=== PATIENT | female | born 1980 | race Caucasian/White ===

== ENCOUNTER 2017-03-27 15:33 | Emergency (ER) | payer MEDICAID ==
[~2017-03-27] VITALS: Ht 162.6 cm; Wt 79.4 kg
[~2017-03-27 15:33] MED LIST: ACETAMINOPHEN-H1 TA2 PO; BUPRENORPHINE H1 TAB PO; BUPROPION HCL150 MG PO; BUSPIRONE HCL10 M1; CITALOPRAM HYDR40 MG PO; CLINDAMYCIN HC300 MG PO; CLONAZEPAM2 MG PO; ETODOLAC400 MG PO; FLEXERIL10 M1 PO; FLEXERIL10 MG PO; HYDROXYZINE HYD50 M1 PO; KLONOPIN 0.5MG0.5 MG PO; LAMICTAL XR300 MG PO; LAMICTAL200 MG PO; LEVAQUIN750 MG PO; MACROBID100 M3 PO; MEDROL DOSEPAK4 MG PO; ROBAXIN-750750 MG PO; SUBOXONE 8 MG-2 MG S; TORADOL10 M1 PO; TORADOL10 MG PO; VALTREX1 GM PO; ZANTAC 150150 MG PO
--- NOTE | 2017-03-27 15:39 | Emergency Room Report ---
History of Present Illness Time Seen by [id number] Presenting Problem in Triage Pt arrived:Walked Presenting Problem:SM LAC TO R INDEX FINGER , NO BLEEDING . 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 N Clinical Suspician of Infection? N Mental Status: 1 - Regular (Normal Baseline) Sepsis Risk:Possible Sepsis Risk Have you (or family members/close friends) recently traveled outside the [place]? N If Yes, where/when: Have you had exposure to infectious disease within the past month? N TB? Other? Specify: Source patient, RN notes reviewed Exam Limitations no limitations Comment accidentally cut her right index finger by closing a pocket knife on it. Cardiac Chest Pain Chest pain indicative of cardiac No ALLERGIES Coded Allergies: Penicillins (Severe, A-ILLKAN-TPBX/THROAT 01/13/16) cefaclor (From CECLOR) (Severe, Y-RAUNGE-ICPG/THROAT 01/13/16) amoxicillin (Mild, 01/13/16) azithromycin (From ZITHROMAX) (Mild, 01/13/16) Home Medications Active Scripts HYDROCODONE/ACETAMINOPHEN (Hydrocodon-Acetaminophen 5-325) 1 TAB PO TID #15 TAB Prov: 01/15/16 Clindamycin Hcl (Clindamycin 300MG) 300 MG PO TID #30 CAP Prov: 12/06/16 Methylprednisolone (Medrol) 4 MG PO DAILY #1 TAB Prov: 01/18/16 Reported Medications Bupropion Hcl (Bupropion HCl Sr) 150 MG PO BID 30 Days Citalopram Hydrobromide (Citalopram HBr) 40 MG PO DAILY 30 Days Clonazepam (Klonopin 0.5MG) 0.5 MG PO 0800,1200 Lamotrigine (Lamictal) 200 MG PO BID History Medical History General CAD? No Angina: No HI: Yes Hypertension? No Hyperlipidemia? No CHF? No DVT? No PE? No COPD? No Asthma? No Anemia? No GERD? No Gastric ulcers? No GI Bleed? No Hernia? No Thyroid Problems? No Hypothyroidism? No CVA? No Seizures? No Diabetes? No Renal Insuffiency? No End Stage Renal Disease? No UTI? Yes Stones? No GB Disease: No Nephritic Syndrome? No Asplenia? No Hepatitis? No Sickle Cell Disease? No Arthritis? No Migraines? No Cataracts? No Glaucoma? No MRSA? No HIV? No TB? No Anxiety? Yes Depression? Yes Cancer? No More? Yes Additional hx: GENITAL HERPES Bipolar Panic disorder Anxiety Depression Chronic pain Urinary incontinence Chronic rheumatic fever Immunization Hx DT/Tetanus Has Never Had Pneumonia Refuses Surgical Hx Previous Surgery?Y X 2 TUBAL LIGATION GALLBLADDER Family History Family Hx Diabetes Yes CAD Yes Hypertension Yes Hyperlipidemia Yes Cancer No TB No Social History Smoking Hx Packs/day 1 1/2 - 2 Packs Alcohol Alcohol: No Review of Systems All Other Systems Reviewed and Negative Constitutional see HPI Skin see HPI Physical Exam Vital Signs Vital Signs Date Time Temp Pulse Resp B/P Pulse O2 O2 Flow FiO2 Ox Delivery Rate 03/27 1538 98.1 92 20 119/53 99 General Appearance normal appearance, WD/WN, no apparent distress Respiratory Status No: respiratory distress. 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 No Results/Orders Current Medication Orders Sig/Flavia Start time Last Medication Dose Route Stop Time Status Admin Bacitracin 0 .STK-MED ONE 03/27 1623 DC TP Lidocaine HCl 0 .STK-MED ONE 03/27 1605 DC .ROUTE Procedures Laceration/Wound Repair Laceration/Wound Repair Risks/benefits discussed with pt/guardian? Yes Tetanus status up to date Wound Location finger(s) Wound Length (cm) 1 Wound's Depth, Shape sucutaneous tissue Wound Explored clean Risk of retained FB explained to pt/guardian? No Irrigated w/ Saline (ccs) 25 Wound Prep Hibiclens, Saline Anesthesia 1% Lidocaine Volume Anesthetic (ccs) 1 Wound Debrided none Wound Repaired With sutures Suture Size/Type 5:0, Ethilon Layer Closure No Total Number Sutures 5 Sterile Dressing Applied Yes Splint Applied No Departure Departure Time of Disposition 1622 Disposition DC Home or Self Care(routine) Clinical Impression Primary Impression: Laceration of right index finger w/o foreign body w/o damage to nail Qualifiers: Encounter type: initial encounter Qualified Code: S61.210A - Laceration without foreign body of right index finger without damage to nail, initial encounter Condition STABLE Referrals KHAI DINHHEAVENLY (Family): 2 Days-Call Office Patient Instructions DI for Laceration Repair, Laceration Repair Additional Instructions Keep stitches dry for 2 days. Change dressing daily and reapply Bactroban ointment Discharge Counseling Counseled pt/family regarding diagnosis, medications/RX, follow up needs Prescriptions Current Visit Scripts SULFAMETHOXAZOLE W/TRIMETHOPRI (Bactrim Ds Tab) 1 TABLET PO BID #20 TAB MUPIROCIN 2% (Bactroban Oint) 1 GM TP DAILY #1 TUBE ED Critical Care Critical Care No If Critical Care minutes are documented, the time involved in the performance of seperately reportable procedures was not counted toward critical care time documented. I directly delivered medical care to this critically ill and/or injured patient. Timely evaluation and treatment was necessary to address the significant organ system(s) dysfunction present in this patient. at [id number]
--- NOTE | 2017-03-27 15:39 | Emergency Room Report ---
History of Present Illness Time Seen by [id number] Presenting Problem in Triage Pt arrived:Walked Presenting Problem:SM LAC TO R INDEX FINGER , NO BLEEDING . 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 N Clinical Suspician of Infection? N Mental Status: 1 - Regular (Normal Baseline) Sepsis Risk:Possible Sepsis Risk Have you (or family members/close friends) recently traveled outside the [place]? N If Yes, where/when: Have you had exposure to infectious disease within the past month? N TB? Other? Specify: Source patient, RN notes reviewed Exam Limitations no limitations Comment accidentally cut her right index finger by closing a pocket knife on it. Cardiac Chest Pain Chest pain indicative of cardiac No ALLERGIES Coded Allergies: Penicillins (Severe, K-[id number]-RROH/THROAT 01/13/16) cefaclor (From CECLOR) (Severe, N-FQBFKC-QRBU/THROAT 01/13/16) amoxicillin (Mild, 01/13/16) azithromycin (From ZITHROMAX) (Mild, 01/13/16) Home Medications Active Scripts HYDROCODONE/ACETAMINOPHEN (Hydrocodon-Acetaminophen 5-325) 1 TAB PO TID #15 TAB Prov: 01/15/16 Clindamycin Hcl (Clindamycin 300MG) 300 MG PO TID #30 CAP Prov: 12/06/16 Methylprednisolone (Medrol) 4 MG PO DAILY #1 TAB Prov: 01/18/16 Reported Medications Bupropion Hcl (Bupropion HCl Sr) 150 MG PO BID 30 Days Citalopram Hydrobromide (Citalopram HBr) 40 MG PO DAILY 30 Days Clonazepam (Klonopin 0.5MG) 0.5 MG PO 0800,1200 Lamotrigine (Lamictal) 200 MG PO BID History Medical History General CAD? No Angina: No MT: Yes Hypertension? No Hyperlipidemia? No CHF? No DVT? No PE? No COPD? No Asthma? No Anemia? No GERD? No Gastric ulcers? No GI Bleed? No Hernia? No Thyroid Problems? No Hypothyroidism? No CVA? No Seizures? No Diabetes? No Renal Insuffiency? No End Stage Renal Disease? No UTI? Yes Stones? No GB Disease: No Nephritic Syndrome? No Asplenia? No Hepatitis? No Sickle Cell Disease? No Arthritis? No Migraines? No Cataracts? No Glaucoma? No MRSA? No HIV? No TB? No Anxiety? Yes Depression? Yes Cancer? No More? Yes Additional hx: GENITAL HERPES Bipolar Panic disorder Anxiety Depression Chronic pain Urinary incontinence Chronic rheumatic fever Immunization Hx DT/Tetanus Has Never Had Pneumonia Refuses Surgical Hx Previous Surgery?Y X 2 TUBAL LIGATION GALLBLADDER Family History Family Hx Diabetes Yes CAD Yes Hypertension Yes Hyperlipidemia Yes Cancer No TB No Social History Smoking Hx Packs/day 1 1/2 - 2 Packs Alcohol Alcohol: No Review of Systems All Other Systems Reviewed and Negative Constitutional see HPI Skin see HPI Physical Exam Vital Signs Vital Signs Date Time Temp Pulse Resp B/P Pulse O2 O2 Flow FiO2 Ox Delivery Rate 03/27 1538 98.1 92 20 119/53 99 General Appearance normal appearance, WD/WN, no apparent distress Respiratory Status No: respiratory distress. 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 No Results/Orders Current Medication Orders Sig/Flavia Start time Last Medication Dose Route Stop Time Status Admin Bacitracin 0 .STK-MED ONE 03/27 1623 DC TP Lidocaine HCl 0 .STK-MED ONE 03/27 1605 DC .ROUTE Procedures Laceration/Wound Repair Laceration/Wound Repair Risks/benefits discussed with pt/guardian? Yes Tetanus status up to date Wound Location finger(s) Wound Length (cm) 1 Wound's Depth, Shape sucutaneous tissue Wound Explored clean Risk of retained FB explained to pt/guardian? No Irrigated w/ Saline (ccs) 25 Wound Prep Hibiclens, Saline Anesthesia 1% Lidocaine Volume Anesthetic (ccs) 1 Wound Debrided none Wound Repaired With sutures Suture Size/Type 5:0, Ethilon Layer Closure No Total Number Sutures 5 Sterile Dressing Applied Yes Splint Applied No Departure Departure Time of Disposition 1622 Disposition DC Home or Self Care(routine) Clinical Impression Primary Impression: Laceration of right index finger w/o foreign body w/o damage to nail Qualifiers: Encounter type: initial encounter Qualified Code: S61.210A - Laceration without foreign body of right index finger without damage to nail, initial encounter Condition STABLE Referrals KHAI DINHHEAVENLY (Family): 2 Days-Call Office Patient Instructions DI for Laceration Repair, Laceration Repair Additional Instructions Keep stitches dry for 2 days. Change dressing daily and reapply Bactroban ointment Discharge Counseling Counseled pt/family regarding diagnosis, medications/RX, follow up needs Prescriptions Current Visit Scripts SULFAMETHOXAZOLE W/TRIMETHOPRI (Bactrim Ds Tab) 1 TABLET PO BID #20 TAB MUPIROCIN 2% (Bactroban Oint) 1 GM TP DAILY #1 TUBE ED Critical Care Critical Care No If Critical Care minutes are documented, the time involved in the performance of seperately reportable procedures was not counted toward critical care time documented. I directly delivered medical care to this critically ill and/or injured patient. Timely evaluation and treatment was necessary to address the significant organ system(s) dysfunction present in this patient. at [id number]
--- OUTSIDE RECORDS SUMMARY | 2017-03-27 16:02 | External Medical Summary Rpt | CCD ---
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 Name Role Phone ANDRE ANDINO MD, Unavailable Unavailable ANDRE ANDINO MD Purpose Continuity of Care Document - 02-05-2013 through 2016 Problems Code Diagnosis DOS Provider Status E06.0 ACUTE 02-02-2017 THYROIDITIS 805.4 805.4 FX 02-05-2013 [facility] OSE E849.8 E849.8 02-05-2013 Ming ACCIDENT IN [facility] E884.2 E884.2 FALL 02-05-2013 Ming FROM [facility] A60.00 HERPESVIRAL INFECTION OF UROGENITAL SYSTEM, UNSPECIFIED F32.9 MAJOR DEPRESSIVE DISORDER, SINGLE EPISODE, UNSPECIFIED F41.0 PANIC DISORDER WITHOUT AGORAPHOBIA F41.1 GENERALIZED ANXIETY DISORDER F43.10 POST-TRAUMA TIC STRESS DISORDER, UNSPECIFIED K81.0 ACUTE CHOLECYSTIT IS M27.3 ALVEOLITIS OF JAWS R11.0 NAUSEA R20.9 UNSPECIFIED DISTURBANCE S OF SKIN SENSATION S00.83XA CONTUSION OF OTHER PART OF HEAD, INITIAL ENCOUNTER S06.0X9A CONCUSSION W LOSS OF CONSCIOUSNE SS OF UNSP DURATION, INIT S16.1XXA STRAIN OF MUSCLE, FASCIA AND TENDON AT NECK LEVEL, INIT S30.0XXA CONTUSION OF LOWER BACK AND PELVIS, INITIAL ENCOUNTER S43.409A UNSP SPRAIN OF UNSPECIFIED SHOULDER JOINT, INIT ENCNTR S73.109A UNSPECIFIED SPRAIN OF UNSPECIFIED HIP, INITIAL ENCOUNTER T14.8 OTHER INJURY OF UNSPECIFIED BODY REGION T78.40XA ALLERGY, UNSPECIFIED , INITIAL ENCOUNTER Allergies, Adverse Reactions, Alerts Type Drug Allergy Adverse Reaction to Substance Substance Reaction Severity Cephalosporin Unknown Unknown Penicillin Unknown Unknown Penicillin V Unknown Unknown Cefaclor Unknown Unknown Medications Na ND Rx Da Fi Fi Am Da Di Ph RX Ph St me C No te ll ll ou ys ag ar # ys at rm s nt no ma ic us Or Da si cy ia de te s n re d Ib 62 10 0 No up 58 -0 ro 40 8- Lo fe 74 20 ng n 60 13 er 40 1 0M Ac G ti Ta ve bl et Vital Signs 02-05-2013 18:13 Name Value Interpretat Reference Comment ion Range BP 55 mm[Hg] Diastolic BP Systolic 108 mm[Hg] Heart 72 /min Rate/Pulse O2% 98 % Respiratory 18 /min Rate 02-05-2013 16:41 Name Value Interpretat Reference Comment ion Range BP 103 mm[Hg] Diastolic BP Systolic 156 mm[Hg] Heart 89 /min Rate/Pulse O2% 98 % Respiratory 20 /min Rate Encounters Encounter Start End Date Code Location Performer Type Date Emergency MELISSA ANDINO MD (ER) 3 16:02 3 18:14 [facility]
--- OUTSIDE RECORDS SUMMARY | 2017-03-27 16:02 | External Medical Summary Rpt | CCD ---
Author Author , BRIAN Organization BRIAN Address Unknown Phone [email or web address] Immunization Name Date Rout CVX Reac Dose Comm Prov Is Faci e tion ent ider Refu lity Give sed n Tdap 04-2 115 999 Hist H149 No H149 , 9-20 oric Adso 08 al rbed Info rmat ion - Sour ce Unsp ecif ied
--- OUTSIDE RECORDS SUMMARY | 2017-03-27 16:02 | External Medical Summary Rpt ---
Author Author [employer], [employer] Organization [employer] Address Unknown Phone Unavailable Results CBC W Auto Differential panel in Blood Observa Value Referen Units Interpr Notes Date tion ce etation Range Basophils 0 - 0.2 K/MM3 Normal No Dec 06 inform2016 [#/volume on in 10:25 PM ] in source Blood by data Automated count Basophils 0.1 - 2.0 % Normal No Dec 06 /2016 leukocyte on in 10:25 PM s in source Blood by data Automated count Eosinophi 0.0 - 0.4 K/mm3 Normal No Dec 06 ls 2016 [#/volume on in 10:25 PM ] in source Blood by data Automated count Eosinophi 0.1 - % Normal No Dec 06 ls/100 12.0 inform2016 leukocyte on in 10:25 PM s in source Blood by data Automated count Granulocy 1.8 - 7.8 K/mm3 Normal No Dec 06 herson 2016 [#/volume on in 10:25 PM ] in source Blood by data Automated count Granulocy 37.0 - % Normal No Dec 06 herson/100 80.0 2016 leukocyte on in 10:25 PM s in source Blood by data Automated count Hematocri 37.0 - % Normal No Dec 06 t [Volume 47.0 2016 on in 10:25 PM Fraction] source of Blood data Hemoglobi 12.2 - g/dL No No Dec 06 n 16.2 informati 2016 [Mass/vol on in on in 10:25 PM ume] in source source Blood data data Lymphocyt 0.7 - 4.5 K/mm3 Normal No Dec 06 es inform2016 [#/volume on in 10:25 PM ] in source Unspecifi data ed specimen by Automated count Lymphocyt 10 - 50.0 % Normal No Dec 06 es inform2016 [#/volume on in 10:25 PM ] in source Unspecifi data ed specimen by Automated count Erythrocy 27 - 31.2 pg Normal No Dec 06 te mean 2016 corpuscul on in 10:25 PM ar source hemoglobi data n [Entitic mass] Erythrocy 31.8 - g/dl Normal No Dec 06 te mean 35.4 2016 corpuscul on in 10:25 PM ar source hemoglobi data n concentra tion [Mass/vol ume] by Automated count Erythrocy 82.2 - fl Normal No Dec 06 te mean 97.8 2016 corpuscul on in 10:25 PM ar volume source [Entitic data volume] by Automated count Monocytes 0.1 - 1.0 K/mm3 Normal No Dec 062016 [#/volume on in 10:25 PM ] in source Blood by data Automated count Monocytes 1.7 - 9.3 % Normal No Dec 06 /100 2016 leukocyte on in 10:25 PM s in source Blood by data Automated count Platelet 7.4 - fl Low No Dec 06 mean 10.4 2016 volume on in 10:25 PM [Entitic source volume] data in Blood by Automated count Platelets 142 - 424 K/mm3 Normal No Dec 062016 [#/volume on in 10:25 PM ] in source Blood data Erythrocy 4.2 - 5.4 M/mm3 Normal No Dec 06 herson 2016 [#/volume on in 10:25 PM ] in source Amniotic data fluid Erythrocy 11.5 - % Normal No Dec 06 te 17.5 2016 distribut on in 10:25 PM ion width source [Entitic data volume] by Automated count Leukocyte 4.8 - K/MM3 High No Dec 06 s 10.8 2016 [#/volume on in 10:25 PM ] in source Blood data Erythrocyte sedimentation rate by Westergren method Observa Value Referen Units Interpr Notes Date tion ce etation Range Erythrocy 0 - 20 mm/hr Normal No Dec 06 te 2016 sedimenta on in 10:25 PM tion rate source by data Westergre n method Comprehensive metabolic 2000 panel in Serum or Plasma Observa Value Referen Units Interpr Notes Date tion ce etation Range Albumin/G 1.1 - 1.8 No Normal No Dec 06 lobulin informati 2016 [Mass on in on in 10:25 PM ratio] in source source Serum or data data Plasma Albumin 3.4 - 5.0 gm/dL Normal No Dec 06 [Mass/vol informati 2017 ume] in on in 10:25 PM Serum or source Plasma data Alkaline 46 - 116 U/L Normal No Dec 06 phosphata informati 2016 se on in 10:25 PM [Enzymati source c data activity/ volume] in Serum or Plasma Bilirubin 0.2 - 1.0 mg/dL Normal No Dec 06 .total informati 2016 [Mass/vol on in 10:25 PM ume] in source Serum or data Plasma Urea 7 - 18 mg/dL Low No Dec 06 nitrogen informati 2016 [Mass/vol on in 10:25 PM ume] in source Serum or data Plasma Calcium 8.5 - mg/dL Normal No Dec 06 [Mass/vol 10.1 informati 2016 ume] in on in 10:25 PM Serum or source Plasma data Chloride 98 - 107 mmoL/L Normal No Dec 06 [Moles/vo informati 2017 lume] in on in 10:25 PM Serum or source Plasma data Carbon 21.0 - mmoL/L Normal No Dec 06 dioxide, 32.0 informati 2016 total on in 10:25 PM [Moles/vo source lume] in data Serum or Plasma Creatinin 0.55 - mg/dL Normal No Dec 06 e 1.02 informati 2016 [Mass/vol on in 10:25 PM ume] in source Serum or data Plasma Creatinin 50 - 200 ML/MIN Normal No Dec 06 e renal informati 2017 clearance on in 10:25 PM source predicted data by Cockcroft -Gault formula Estimated 59- ML/MIN No REFERENCE Dec 06 informati RANGE: 2017 glomerula on in >60 10:25 PM r source ML/MIN/1. filtratio data 73 SQUARE n rate METERSIf (GF this patient is -A merican, then multiply theresult by 1.210. Globulin 1.3 - 3.2 gm/dL High No Dec 06 [Mass/vol informati 2017 ume] in on in 10:25 PM Serum source data Glucose 74 - 106 mg/dL Normal No Dec 06 [Mass/vol informati 2017 ume] in on in 10:25 PM Serum or source Plasma data Potassium 3.5 - 5.1 mmoL/L Normal No Dec 06 informati 2017 [Moles/vo on in 10:25 PM lume] in source Serum or data Plasma Sodium 136 - 145 mmoL/L Normal No Dec 06 [Moles/vo informati 2017 lume] in on in 10:25 PM Serum or source Plasma data Aspartate 15 - 37 U/L Normal No Dec 06 informati 2016 aminotran on in 10:25 PM sferase source [Enzymati data c activity/ volume] in Serum or Plasma Alanine 12 - 78 U/L Normal No Dec 06 aminotran informati 2016 sferase on in 10:25 PM [Enzymati source c data activity/ volume] in Serum or Plasma Protein 6.4 - 8.2 gm/dL Normal No Dec 06 [Mass/vol informati 2017 ume] in on in 10:25 PM Serum or source Plasma data
--- OUTSIDE RECORDS SUMMARY | 2017-03-27 16:02 | External Medical Summary Rpt | CCD ---
Author Author [employer] Organization [employer] Address Unknown Phone Unavailable Purpose Continuity of Care Document - through 2016
--- OUTSIDE RECORDS SUMMARY | 2017-03-27 16:02 | External Medical Summary Rpt | CCD ---
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
--- OUTSIDE RECORDS SUMMARY | 2017-03-27 16:02 | External Medical Summary Rpt | CCD ---
Author Author , BRIAN Organization BRIAN Address Unknown Phone [email or web address] Immunization Name Date Rout CVX Reac Dose Comm Prov Is Faci e tion ent ider Refu lity Give sed n Tdap 04-2 115 999 Hist H149 No H149 , 9-20 oric Adso 08 al rbed Info rmat ion - Sour ce Unsp ecif ied
[2017-03-27] MEDS ORDERED: BACTROBAN2% TP (16:25)
[2017-03-27] MEDS ORDERED: BACTRIM DS 8001 TA1 PO (16:25)
[2017-03-27 16:31] VITALS: BP 119/53
== END 2017-03-27 16:32 | disposition home or self-care (01) ==
LOC: ER 15:33
PROC: 0HQFXZZ Repair Right Hand Skin, External Approach (ICD-10-PCS; principal; 2017-03-27)
DX: S61.210A Laceration without foreign body of right index finger without damage to nail, initial encounter (principal); W26.0XXA Contact with knife, initial encounter; Y92.019 Unspecified place in single-family (private) house as the place of occurrence of the external cause